=== PATIENT | male | born 1995 | race Caucasian/White ===

== ENCOUNTER 2025-06-18 22:01 | Emergency (ER) | payer MEDICAID, SELFPAY ==
--- NOTE | ~2025-06-18 | XR_ITS ---
CLINICAL HISTORY: post reduction 3 view left hand Comparison: CR - XR HAND LT MIN 3V - 06/18/25 22:34 EDT Findings: No dislocation. No arthritic change. No erosions. No radiopaque foreign body. IMPRESSION: There has been slight improvement in the alignment of 4th metacarpal midshaft fracture. Fiberglass splint is in place. This document has been electronically signed by: Oleksandr Singh MD on 06/19/2025 02:13:43
--- NOTE | ~2025-06-18 | XR_ITS ---
CLINICAL HISTORY: injury, swellin pain 3 view left hand Comparison: None provided Findings: Acute mid 4th metacarpal fracture with volar angulation and slight posterior displacement of distal fragment. No arthritic change. No erosions. No radiopaque foreign body. IMPRESSION: Acute 4th metacarpal midshaft fracture. This document has been electronically signed by: Oleksandr Singh MD on 06/18/2025 23:02:52
[2025-06-18 22:07] VITALS: BP 144/80; PULSE 59; RESP 18; TEMP 36.3; O2SAT 98; BMI 20.3
[2025-06-18 23:20] VITALS: BP 131/74; PULSE 58; RESP 18; TEMP 36.8; O2SAT 98
[2025-06-19 01:45] VITALS: BP 128/78; PULSE 50; RESP 18; O2SAT 96
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
[2025-06-19] MEDS: Lidocaine HCl 1 % MPF 5 ML VIAL INFILTRATI (02:02)
[2025-06-19 02:11] VITALS: BP 128/78; PULSE 50; RESP 18; TEMP 36.7; O2SAT 96
== END 2025-06-19 02:12 | disposition home or self-care (01) ==
PROVIDERS: Emergency Provider Student in an Organized Health Care Education/Training Program
DX: S62.325A Displaced fracture of shaft of fourth metacarpal bone, left hand, initial encounter for closed fracture (principal); V18.0XXA Pedal cycle driver injured in noncollision transport accident in nontraffic accident, initial encounter; Y93.89 Activity, other specified; Y92.9 Unspecified place or not applicable; Y99.9 Unspecified external cause status
CPT/HCPCS: 26605; 73130; 99284; J2003

== ENCOUNTER → 2025-06-18 22:30 | Outpatient (BNV) | payer MEDICAID, SELFPAY | PROVIDERS: Visit Provider Radiology Diagnostic Radiology | DX: S62.324A Displaced fracture of shaft of fourth metacarpal bone, right hand, initial encounter for closed fracture (principal); V18.2XXA Unspecified pedal cyclist injured in noncollision transport accident in nontraffic accident, initial encounter | CPT/HCPCS: 73130 ==

== ENCOUNTER → 2025-06-19 01:31 | Outpatient (BNV) | payer MEDICAID, SELFPAY | PROVIDERS: Emergency Provider Student in an Organized Health Care Education/Training Program; Visit Provider Radiology Diagnostic Radiology | DX: S62.325A Displaced fracture of shaft of fourth metacarpal bone, left hand, initial encounter for closed fracture (principal) | CPT/HCPCS: 73130 ==

== ENCOUNTER 2025-06-21 15:48 | Emergency (ER) | payer MEDICAID, SELFPAY ==
--- NOTE | ~2025-06-21 | XR_ITS ---
CLINICAL HISTORY: repeat trauma, pain 3 view left hand Comparison: CR - XR HAND LT MIN 3V - 06/19/25 01:32 EDT Findings: Status post splinting of the 4th metacarpal dorsally angulated fracture of the mid diaphysis with unchanged alignment. No significant loss of joint space or osteophytes. No erosions. No radiopaque foreign body. IMPRESSION: Status post splinting of the 4th metacarpal dorsally angulated fracture of the mid diaphysis with unchanged alignment. This document has been electronically signed by: Kd Balderrama MD on 06/21/2025 18:19:12
[2025-06-21 15:56] VITALS: BP 157/70; PULSE 90; RESP 20; TEMP 36.6; O2SAT 98; BMI 20.5
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
--- OUTSIDE RECORDS SUMMARY | 2025-06-21 18:52 | XMS_ITS | Clinical Summary ---
Author Organization [employer] Address [address] [facility] [address] [place] [address] Care Team Providers Care Senior Cytogenetic Technologist Name Role Phone Unavailable Primary Care Provider Unavailabl e Social History Tobacco Use Types Packs/Day Years Used Date Smoking Tobacco: Never Assessed Sex and Gender Information Value Date Recorded Sex Assigned at Not on file Legal Sex Male 8:34 PM EDT Gender Identity Not on file Sexual Orientation Not on file Plan of Treatment Health Maintenance Due Date Last Done Comments Depression Screening 1994 Disability Screening 1994 Alcohol/Substance Use Screening 2006 Tobacco Screening 2006 Family Planning (PISQ) 2009 HPV Vaccines (1 - Male 3-dos e series) 2009 DTaP/Tdap/Td Vaccines (1 - Tdap) 2013 Hepatitis B Vaccines (1 of 3 - 19+ 3-dose series) 2013 COVID-19 Vaccine (1 - 2023-2 5 season) 2025 Influenza Vaccine (#1) 2025 Zoster Vaccines (1 of 2) 2044 RSV Patients and Pa tients Aged 60 years or older (1 - 1-dose 75+ series) 2069 HIB Vaccines Aged Out No longer eligi ble based on patient's age to complete this topic Hepatitis A Vaccines Aged Out No long er eligible based on patient's age to complete this topic IPV Vaccines Aged Out No longer eligi ble based on patient's age to complete this topic Meningococcal B Vaccine Aged Out No l onger eligible based on patient's age to complete this topic Meningococcal Vaccine Aged Out No abbey arturo eligible based on patient's age to complete this topic Pneumococcal Vaccine: Pediat rics (0 to 5 Years) and At-Risk Patients (6 to 49) Years Aged Out No longer eligible b ased on patient's age to complete this topic RSV under 20 months Aged Out No longe r eligible based on patient's age to complete this topic Rotavirus Vaccines Aged Out No longer eligible based on patient's age to complete this topic
[2025-06-21 19:03] VITALS: BP 157/70; PULSE 90; RESP 20; TEMP 36.6; O2SAT 98
== END 2025-06-21 19:03 | disposition home or self-care (01) ==
PROVIDERS: Emergency Provider Student in an Organized Health Care Education/Training Program
DX: S62.305A Unspecified fracture of fourth metacarpal bone, left hand, initial encounter for closed fracture (principal); M79.645 Pain in left finger(s); V19.9XXA Pedal cyclist (driver) (passenger) injured in unspecified traffic accident, initial encounter; Y93.55 Activity, bike riding; Y92.9 Unspecified place or not applicable; Y99.8 Other external cause status
CPT/HCPCS: 73130; 99283; 99284

== ENCOUNTER → 2025-06-21 15:57 | Outpatient (BNV) | payer MEDICAID, SELFPAY | PROVIDERS: Emergency Provider Student in an Organized Health Care Education/Training Program; Visit Provider Student in an Organized Health Care Education/Training Program | DX: M79.642 Pain in left hand (principal); S62.325A Displaced fracture of shaft of fourth metacarpal bone, left hand, initial encounter for closed fracture | CPT/HCPCS: 73130 ==

== ENCOUNTER 2025-06-25 09:12 | Outpatient (AMB) | payer MEDICAID, SELFPAY ==
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
[2025-06-25 09:33] VITALS: BMI 20.5
== END 2025-06-25 10:16 | disposition home or self-care (01) ==
LOC: HO.HOS 09:12
PROVIDERS: Visit Provider Orthopaedic Surgery
DX: S62.325A Displaced fracture of shaft of fourth metacarpal bone, left hand, initial encounter for closed fracture (principal)
CPT/HCPCS: 99204

== ENCOUNTER → 2025-06-25 09:14 | Outpatient (BNV) | payer MEDICAID, SELFPAY | PROVIDERS: Visit Provider Radiology Diagnostic Ultrasound | DX: S62.325A Displaced fracture of shaft of fourth metacarpal bone, left hand, initial encounter for closed fracture (principal) | CPT/HCPCS: 73130 ==

== ENCOUNTER 2025-06-25 09:42 | Outpatient (REF) | payer MEDICAID, SELFPAY ==
--- NOTE | ~2025-06-25 | XR_ITS ---
EXAMINATION: XR HAND, LEFT CLINICAL INFORMATION: M79.642 - Pain in left hand COMPARISON: None available. TECHNIQUE: PA, lateral, and oblique views of the left hand. FINDINGS: Redemonstrated fracture of the mid diaphysis of the fourth metacarpal, with mild displacement. Alignment appears similar. No lateral view provided evaluate for the dorsal angulation. No significant callus/new bone formation. No new acute fracture seen. No significant joint space loss or erosions. No radiopaque foreign body. XR/XR hand LT min 3V IMPRESSION: Similar alignment of the fourth metacarpal mid diaphyseal fracture. Electronically signed by: Harjinder Freitas MD 06/25/2025 09:33 AM EDT RP
== END 2025-06-25 09:43 | disposition home or self-care (01) ==
LOC: HO.HOSX 09:42
PROVIDERS: Visit Provider Orthopaedic Surgery
DX: S62.325A Displaced fracture of shaft of fourth metacarpal bone, left hand, initial encounter for closed fracture (principal); V18.0XXA Pedal cycle driver injured in noncollision transport accident in nontraffic accident, initial encounter
CPT/HCPCS: 73130; 99202

== ENCOUNTER 2025-06-26 09:37 | Day surgery (SDC) | payer MEDICAID, SELFPAY ==
--- OUTSIDE RECORDS SUMMARY | 2025-06-25 06:10 | XMS_ITS | Clinical Summary ---
Author Organization [employer] Address [address] [facility] [address] [place] [address] Care Team Providers Care Filter Press Pumper Name Role Phone Unavailable Primary Care Provider [...] Date Last Done Comments Depression Screening 1994 HIV Screening 1994 Disability Screening 1994 Alcohol/Substance Use Screening 2006 Tobacco Screening 2006 Family Planning (PISQ) 2009 HPV Vaccines (1 - Male 3-dos e series) 2009 Hepatitis C Screening 2012 DTaP/Tdap/Td Vaccines (1 - Tdap) 2013 Hepatitis [...]
--- NOTE | 2025-06-25 10:28 | P.CONAN_ITS ---
Documented by User: Monique Eng NP 06/25/25 10:29 HPI - Anesthesia Eval Consult details Narrative: 29 yr old male for left 4th CRPP vs ORIF Metacarpal PMFSH Active Problems Active Problems: All Active Problems (Updated 06/25/25 @ 09:42 by Sukh Macias) Fracture of shaft of fourth metacarpal bone of left hand (Acute) Social History Social History Alcohol intake: never Patient Tobacco Use Status: Current everyday Tobacco user Advance Directives: No Advance Directives Information Provided: Yes Current occupational status: unemployed Current occupation: right hand dominant Meds Allergies Allergy/AdvReac Type Severity Reaction Status Date / Time No Known Allergies Allergy Verified 06/26/25 10:21 Home Medications ?Medication ?Instructions ?Recorded ?Confirmed ?Last Taken ?Type No Known Home Meds 06/25/25 Unknown Hi story Documented by User: Shannan Herbert MD 06/26/25 10:24 PMFSH Family History Family history of problems with anesthesia: No Surgical History History of Problems with Anesthesia: No Social History Social History Alcohol intake: never Patient Tobacco Use Status: Current everyday Tobacco user Advance Directives: No Advance Directives Information Provided: Yes Current occupational status: unemployed Current occupation: right hand dominant Meds Allergies Allergy/AdvReac Type Severity Reaction Status Date / Time No Known Allergies Allergy Verified 06/26/25 10:21 Home Medications ?Medication ?Instructions ?Recorded ?Confirmed ?Last Taken ?Type No Known Home Meds 06/25/25 Unknown Hi story Exam Airway Mallampati Class: II TM Dist: >3cm Neck ROM: Full Heart: rrr Lungs: cta Assessment and Plan Assessment Anesthesia Assessment: Anesthesia Plan Discussed and Chart Reviewed Final Anesthetic Review Family History of Problems with Anesthesia: No History of Problems with Anesthesia: No NPO: Yes ASA Class: II (daily smoker ) Final Preanesthetic Review: No Changes in Pt Med Stat, Meds/Allgs Chart Reviewed, Consent Obtained/Reviewed and Anes Risks/Benef Reviewed Patient Risk: Intermediate Procedure Risk: Low Anesthetic Plan Anesthetic Plan: GA Disposition: Standard PACU
[2025-06-26] VITALS (7 sets, daily range): BP systolic 107–160; BP diastolic 56–82; PULSE 62–81; RESP 12–14; TEMP 36.2–36.9; O2SAT 97–100; BMI 20.4
--- NOTE | ~2025-06-26 | FL_ITS ---
EXAMINATION: XR FLUOROSCOPY WITH IMAGES CLINICAL INFORMATION: Fourth CRPP versus ORIF metacarpal COMPARISON: X-ray 06/25/2025 TECHNIQUE: Fluoroscopy provided to: Dr. Sanchez Fluoroscopy time: 52 SECS DAP: 0.11 mGycm2 Images: 5 FINDINGS: Multiple intraoperative images for surgical fixation of a fourth metacarpal fracture. FL/FL guidance in OR IMPRESSION: Fluoroscopy during procedure.. See procedure report for additional information.. Electronically signed by: Harjinder Freitas MD 06/26/2025 02:19 PM EDT
--- NOTE | 2025-06-26 07:56 | P.OP_ITS ---
Operative Note Operative Note Date of Service: 06/26/25 Narrative: Operative Note Narrative: Preop diagnosis: 1. Left 4th Metacarpal shaft fracture Postop diagnosis: Same Procedure: 1. Left 4th Metacarpal fracture closed reduction percutaneous pinning 2. Ulnar nerve block Surgeon: Nida Sanchze MD Casino Shift Manager: None Anesthesia: General Anesthesia Findings: Metacarpal fracture Implants: 0.054 K-wires times 1 Tourniquet time: None EBL: Minimal Specimen: None Drains: None Complications: None Disposition: Brought to the recovery room in stable condition Plan: Follow-up in 10-14 days for a wound check, postop radiographs and for placement in a short-arm finger spica cast, sherrie taping the middle in the ring finger together Anticipate K-wire removal in 4 weeks based on interval bony healing Educate the patient that full fracture healing anticipated in approximately 8-12 weeks. Indications: The patient is 29 years old with a left 4th metacarpal shaft fracture . The risks and benefits of operative treatment, including but not limited to risk of damage to blood vessels, nerves, tendons, infection, recurrence, delayed or nonunion of fracture, persistent pain or numbness, incomplete resolution of preoperative symptoms, or need for further surgery were discussed with the patient and they wished to proceed with surgery. Procedure: Once consent was obtained patient was brought back to the operating suite and placed in the operating table in a supine position. . Perioperative antibiotics and general anesthesia was administered by the anesthesia team. A tourniquet was applied to the proximal aspect of the left upper extremity and the limb was prepped and draped in a standard surgical fashion. Tourniquet was not inflated during the case. The FluoroScan was used during the case to assist with our fracture reduction and placement of all implants. A closed reduction was performed on the patient's left 4th metacarpal shaft fracture. I placed a single 0.054 K-wire retrograde through the head of the 4th metacarpal extending proximally across the fracture site to the base of the metacarpal. Fracture alignment was assessed for both angular and rotational malalignment. Once satisfied with our fracture reduction and implant placement, the K-wires were bent and cut short and pin caps applied. Final fluoroscopic images were then obtained. The wounds were copiously irrigated with normal saline. I infiltrated about the fracture site with some 1% lidocaine with epinephrine for postop pain control. A Sterile dressing and dorsal blocking splint was applied. The patient appears to have tolerated the procedure well and with no complications. All digits were well vascularized at the conclusion of the case.
[2025-06-26] MEDS: Lactated Ringers 1,000 ML 100 ML IVCONT (10:38)
--- NOTE | 2025-06-26 12:13 | MHC.SHP ---
Pre-Procedural Eval Section A - 24 Hr Update-Section A only Date of Service: 06/26/25 The patient is an INPATIENT: No Changes since office visit: No Cold of Flu in the past 2 weeks, No New Medical Problems, No Changes in Medication and No Patient answered all questions The patient has been examined within 24 hours of the surgical procedure. The History & Physical has been completed within 30 days and I have reviewed it.: Yes Section B - Complete if H&P > 30 days Chief Complaint: Displaced fracture of shaft of fourth metacarpal Allergies: Allergies Allergy/AdvReac Type Severity Reaction Status Date / Time No Known Allergies Allergy Verified 06/26/25 10:21 Plan I have reviewed the history and physical and performed a pertinent physical examination on my patient. No changes have occurred unless specified. Time Spent With Patient Time: Total time managing care of this patient today ____ minutes.
== END 2025-06-26 15:26 | disposition home or self-care (01) ==
PROVIDERS: Visit Provider Orthopaedic Surgery
PROC: (CPT 26608; principal; 2025-06-26 11:20)
DX: S62.325A Displaced fracture of shaft of fourth metacarpal bone, left hand, initial encounter for closed fracture (principal); M79.642 Pain in left hand; R20.0 Anesthesia of skin; V18.0XXA Pedal cycle driver injured in noncollision transport accident in nontraffic accident, initial encounter; Y93.55 Activity, bike riding; Y92.9 Unspecified place or not applicable; Y99.9 Unspecified external cause status; F17.210 Nicotine dependence, cigarettes, uncomplicated; Z56.0 Unemployment, unspecified
CPT/HCPCS: 26608; J0131; J0690; J1100; J1885; J2003; J2004; J2250; J2405; J2704; J3010

== ENCOUNTER → 2025-06-26 09:37 | Outpatient (BNV) | payer MEDICAID, SELFPAY | PROVIDERS: Visit Provider Orthopaedic Surgery | DX: S62.305A Unspecified fracture of fourth metacarpal bone, left hand, initial encounter for closed fracture (principal) | CPT/HCPCS: 26608 ==

== ENCOUNTER 2025-07-09 10:35 | Outpatient (REF) | payer MEDICAID, SELFPAY ==
--- NOTE | ~2025-07-09 | XR_ITS ---
EXAMINATION: XR HAND 3 OR MORE VIEWS LEFT HISTORY: M79.642 - Pain in left hand COMPARISON: Comparison is made with the prior examination dated 06/25/2025. FINDINGS: Three views of the left hand are submitted. Osseous mineralization is normal. The patient is status post internal fixation of the previously noted fracture of the midshaft of the 4th metacarpal with a single K wire. Alignment is near-anatomic. The fracture line remains visible. The joint spaces are preserved. The soft tissues are unremarkable. XR/XR hand LT min 3V IMPRESSION: Internal fixation of the previously noted fracture of the midshaft of the 4th metacarpal. Electronically signed by: Reggie Escudero MD 07/09/2025 03:00 PM EDT
--- OUTSIDE RECORDS SUMMARY | 2025-07-09 13:25 | XMS_ITS | Clinical Summary ---
Author Organization [facility] Address [address] [place] [address] Care Team Providers Care Hydraulics Engineer Name Role Phone Unavailable Primary Care Provider [...]
== END 2025-07-09 10:36 | disposition home or self-care (01) ==
LOC: HO.HOSX 10:35
DX: S62.325D Displaced fracture of shaft of fourth metacarpal bone, left hand, subsequent encounter for fracture with routine healing (principal); X58.XXXD Exposure to other specified factors, subsequent encounter
CPT/HCPCS: 73130

== ENCOUNTER 2025-07-09 14:11 | Outpatient (AMB) | payer MEDICAID, SELFPAY ==
--- NOTE | 2025-07-09 14:27 | A.OFFVIS_ITS ---
Vital Signs 07/09/25 14:28 Height 5 ft 7 in Weight 130 lb BMI 20.4 Intake Visit Reasons: PO-Lt 4th MC CRPP 06/26/25 AR Intake Note: Brandan is a 29 year old right hand dominant male who presents today for a Post- operative visit status post Left 4th Metacarpal Fracture CRPP, DOS: 06/26/[address] Sanchez. Patient reports there is minimal pain. He feels like his hand swells up during the night. He is taking Ibuprofen with relief. He denies numbness or tingling. Allergies No Known Allergies Allergy (Verified 07/09/25 14:43) HPI HPI PO-Lt 4th MC CRPP 06/26/25 AR: Details: Brandan is a 29 year old right hand dominant male who presents today for a Post- operative visit status post Left 4th Metacarpal Fracture CRPP, DOS: 06/26/[address] Sanchez. Patient reports there is minimal pain. He feels like his hand swells up during the night. He is taking Ibuprofen with relief. He denies numbness or tingling. [facility] Surgical History (Updated 07/09/25 @ 14:45 by BETTY Han) History of wisdom tooth extraction Social History Are you a primary child care provider to a significant other at home: No Do you presently have visiting nurse or other home services: No Alcohol intake: never Patient Tobacco Use Status: Current everyday Tobacco user Tobacco use type: Cigarette Cigarettes Per Day: 9 Current occupational status: unemployed Current occupation: right hand dominant Review of Systems Const All systems reviewed & are unremarkable except as noted in HPI and below Physical Exam Vital Signs: BMI result Body Mass Index 20.4 Extrem Other: Patient is alert, oriented, and in no acute distress. Neuro: Normal sensation of the tips of all digits of the left hand at this time Vascular: Cap refill brisk Pain: Some tenderness to palpation about fracture site and left 4th metacarpal ROM: Range of motion of all other digits of the left hand full and intact Skin: Pin sites with no signs of infection, clean, dry, intact No lacerations or abrasions. General: No ecchymosis, erythema, or evidence of infection. Psych: Appears grossly normal Affect normal Attitude cooperative Office Procedures Casting/Splints 24369-Ftoc/Wrist Cast Application Procedure code (CPT) selection complete Results Reviewed Results Reviewed: X-rays obtained in the office today and independently reviewed by me, Geraldo Norris PA-C, demonstrate status post left 4th metacarpal CRPP with all orthopedic hardware in place, satisfactory clinical alignment, and satisfactory fracture alignment. Assessment & Plan Assessment & Plan (1) Fracture of shaft of fourth metacarpal bone of left hand: Code(s): S62.325A - Displaced fracture of shaft of fourth metacarpal bone, left hand, initial encounter for closed fracture Category: Medical Plan 1. Status post left 4th metacarpal CRPP DOS 06/26/2025 Patient appears to be recovering well postoperatively Patient is educated about the typical recovery course Patient is placed into a ulnar gutter cast at this time Patient is educated on proper cast care and precautions Patient is educated on the potential signs of infection developing under cast, should call our office if he experiences any of these issues 2 lb weight limit in the left hand Patient understands this and is amenable to this plan Follow-up in 2 weeks with repeat x-rays for reassessment, sooner with any acute concerns Orders: Orders XR hand LT min 3V 07/09/25 M79.642 - Pain in left hand Coding Level of Care Code Global (00221) Diagnoses Fracture of shaft of fourth metacarpal bone of left hand S62.325A CPT Codes Casting - CPT: 97245-Odjp/Wrist Cast Application ([id number])
[2025-07-09 14:28] VITALS: BMI 20.4
== END 2025-07-09 15:44 | disposition home or self-care (01) ==
LOC: HO.HOS 14:12
DX: S62.325A Displaced fracture of shaft of fourth metacarpal bone, left hand, initial encounter for closed fracture (principal)
CPT/HCPCS: 29085; 99024

== ENCOUNTER → 2025-07-09 14:32 | Outpatient (BNV) | payer MEDICAID, SELFPAY | PROVIDERS: Visit Provider Radiology Diagnostic Radiology | DX: M79.642 Pain in left hand (principal) | CPT/HCPCS: 73130 ==

== ENCOUNTER 2025-07-28 08:06 | Outpatient (REF) | payer MEDICAID, SELFPAY ==
--- NOTE | ~2025-07-28 | XR_ITS ---
EXAMINATION: XR HAND, LEFT CLINICAL INFORMATION: M79.642 - Pain in left hand COMPARISON: July 09, 2025 TECHNIQUE: PA, lateral, and oblique views of the left hand. FINDINGS: There is a K wire through the fourth metatarsal fracture. No callus formation. Persistent 2 mm capitate the fragments. XR/XR hand LT min 3V IMPRESSION: Nonunion fracture, fourth metacarpal. Status post K wire placement. Electronically signed by: Vignesh Turner MD 07/28/2025 02:50 PM EST
--- OUTSIDE RECORDS SUMMARY | 2025-07-28 08:23 | XMS_ITS | Clinical Summary ---
Author Organization [facility] Address [address] [place] [address] Care Team Providers Care Animal Rehabilitator Name Role Phone Unavailable Primary Care Provider [...]
== END 2025-07-28 08:07 | disposition home or self-care (01) ==
LOC: HO.HOSX 08:06
DX: S62.352D Nondisplaced fracture of shaft of third metacarpal bone, right hand, subsequent encounter for fracture with routine healing (principal)
CPT/HCPCS: 29085; 73130; 99212

== ENCOUNTER 2025-07-28 13:12 | Outpatient (AMB) | payer MEDICAID, SELFPAY ==
[2025-07-28 13:27] VITALS: BMI 20.4
--- NOTE | 2025-07-28 13:27 | A.OFFVIS_ITS ---
Vital Signs 07/28/25 13:27 Height 5 ft 7 in Weight 130 lb BMI 20.4 Intake Visit Reasons: PO-Lt 4th MC CRPP 06/26/25 AR w/ xray Intake Note: Brandan is a 29 year old right hand dominant male who presents today for a Post- operative visit status post Left 4th Metacarpal CRPP performed on 06/26/[address] Sanchez. At his last visit, he was placed into an ulnar gutter cast and advised to remain at a 2 lb weight limit. Patient complains of weakness of his finger tips. He denies any pain but is concerned he is not able to fully open is hand or make a closed fist. Allergies No Known Allergies Allergy (Verified 07/28/25 13:27) HPI HPI PO-Lt 4th MC CRPP 06/26/25 AR w/ xray: Details: Brandan is a 29 year old right hand dominant male who presents today for a Post- operative visit status post Left 4th Metacarpal CRPP performed on 06/26/[address] Sanchez. At his last visit, he was placed into an ulnar gutter cast and advised to remain at a 2 lb weight limit. Patient complains of weakness of his finger tips, particularly of the middle, ring, small fingers. He denies any pain but is concerned he is not able to fully open is hand or make a closed fist. Denies any numbness or tingling in the left hand. No other acute complaints or concerns at this time. [facility] Surgical History (Updated 07/09/25 @ 14:45 by BETTY Han) History of wisdom tooth extraction Social History Are you a primary home day care provider to a significant other at home: No Do you presently have visiting nurse or other home services: No Alcohol intake: never Patient Tobacco Use Status: Current everyday Tobacco user Tobacco use type: Cigarette Cigarettes Per Day: 9 Current occupational status: unemployed Current occupation: right hand dominant Review of Systems Const All systems reviewed & are unremarkable except as noted in HPI and below Physical Exam Vital Signs: BMI result Body Mass Index 20.4 Extrem Other: Patient is alert, oriented, and in no acute distress. Neuro: Normal sensation of the tips of all digits of the left hand at this time Vascular: Cap refill brisk Pain: Some tenderness to palpation about fracture site and left 4th metacarpal Some discomfort with range of motion of the left middle, ring, small fingers ROM: Patient is able to flex and extend the left thumb and index finger fully Patient does have limited flexion and extension of the middle and small fingers of the left hand, extension more limited in flexion Skin: Pin sites with no signs of infection, clean, dry, intact No lacerations or abrasions. General: No ecchymosis, erythema, or evidence of infection. Psych: Appears grossly normal Affect normal Attitude cooperative Office Procedures Casting/Splints 35583-Eryq/Wrist Cast Application Procedure code (CPT) selection complete Results Reviewed Results Reviewed: X-rays obtained in the office today and independently reviewed by me, Geraldo Norris PA-C, demonstrate status post left 4th metacarpal CRPP with all orthopedic hardware in place, satisfactory clinical alignment, and satisfactory fracture alignment, however there is minimal if any evidence of bony healing at this time. Assessment & Plan Assessment & Plan (1) Fracture of shaft of fourth metacarpal bone of left hand: Code(s): S62.325A - Displaced fracture of shaft of fourth metacarpal bone, left hand, initial encounter for closed fracture Category: Medical Plan 1. Status post left 4th metacarpal CRPP DOS 06/26/2025 Patient appears to be recovering well postoperatively Patient is educated about the typical recovery course Patient is placed into a ulnar gutter cast at this time due to minimal evidence of healing, and pin remains in place also due to this. Patient is educated on proper cast care and precautions Patient is educated on the potential signs of infection developing under cast, should call our office if he experiences any of these issues 2 lb weight limit in the left hand Patient understands this and is amenable to this plan Follow-up in 7-10 days with me with Dr. Sanchez in the office with repeat x- rays for reassessment, anticipate pin removal and cast removal at that time, with any acute concerns Orders: Orders XR hand LT min 3V 07/28/25 M79.642 - Pain in left hand Coding Level of Care Code Global (38723) Diagnoses Fracture of shaft of fourth metacarpal bone of left hand S62.325A CPT Codes Casting - CPT: 21390-Vtdg/Wrist Cast Application ([id number])
== END 2025-07-28 15:08 | disposition home or self-care (01) ==
LOC: HO.HOS 13:12
DX: S62.325A Displaced fracture of shaft of fourth metacarpal bone, left hand, initial encounter for closed fracture (principal)
CPT/HCPCS: 29085; 99024

== ENCOUNTER → 2025-07-28 13:13 | Outpatient (BNV) | payer MEDICAID, SELFPAY | PROVIDERS: Visit Provider Radiology Diagnostic Radiology | DX: S62.30 Unspecified fracture of other metacarpal bone (principal) | CPT/HCPCS: 73130 ==

== ENCOUNTER 2025-08-05 08:15 | Outpatient (REF) | payer MEDICAID, SELFPAY ==
--- NOTE | ~2025-08-05 | XR_ITS ---
EXAMINATION: XR HAND, LEFT CLINICAL INFORMATION: M79.642 - Pain in left hand COMPARISON: 05/28/2025 TECHNIQUE: PA, lateral, and oblique views of the left hand. FINDINGS: Again seen is a K wire traversing an oblique fracture through the middle third diaphysis of the fourth metacarpal.. There is increasing periosteal new bone formation. No other changes are evident. XR/XR hand LT min 3V IMPRESSION: Healing fourth metacarpal fracture post K wire placement. Electronically signed by: Kareem José MD 08/05/2025 10:27 AM JOI
--- OUTSIDE RECORDS SUMMARY | 2025-08-06 15:52 | XMS_ITS | Clinical Summary ---
Author Organization [facility] Address [address] [facility] [address] [place] [address] Care Team Providers Care Chip Bin Conveyor Tender Name Role Phone Unavailable Primary Care Provider [...]
== END 2025-08-05 08:16 | disposition home or self-care (01) ==
LOC: HO.HOSX 08:15
DX: S62.325D Displaced fracture of shaft of fourth metacarpal bone, left hand, subsequent encounter for fracture with routine healing (principal); X58.XXXD Exposure to other specified factors, subsequent encounter
CPT/HCPCS: 73130; 99212

== ENCOUNTER 2025-08-05 08:53 | Outpatient (AMB) | payer MEDICAID, SELFPAY ==
[2025-08-05 09:00] VITALS: BMI 20.4
--- NOTE | 2025-08-05 09:00 | A.OFFVIS_ITS ---
Vital Signs 08/05/25 09:00 Height 5 ft 7 in Weight 130 lb BMI 20.4 Intake Visit Reasons: PO-Lt 4th MC CRPP 06/26/25 AR w/ xray Intake Note: Brandan is a 29 year old right hand dominant male who presents today for a Post- operative visit status post Left 4th Metacarpal CRPP performed on 06/26/[address] Sanchez. At his last visit, he was placed in an ulnar gutter cast and pl aced in 2 lb weight limit. Anticipate pin and cast removal. Today, patient reports he has very minimal pain. He is mainly concerned about his hand stiffness. Allergies No Known Allergies Allergy (Verified 08/05/25 09:13) HPI HPI PO-Lt 4th MC CRPP 06/26/25 AR w/ xray: Details: Brandan is a 29 year old right hand dominant male who presents today for a Post- operative visit status post Left 4th Metacarpal CRPP performed on 06/26/[address] Sanchez. At his last visit, he was placed in an ulnar gutter cast and placed in 2 lb weight limit. Anticipate pin and cast removal. Today, patient reports he has very minimal pain. No tenderness to palpation, patient states that his pain is all with motion of the left hand, and he feels this is due to being in a cast for so long. He is mainly concerned about his hand stiffness. [facility] Surgical History (Updated 07/09/25 @ 14:45 by BETTY Han) History of wisdom tooth extraction Social History Are you a primary patient centered care specialist to a significant other at home: No Do you presently have visiting nurse or other home services: No Alcohol intake: never Patient Tobacco Use Status: Current everyday Tobacco user Tobacco use type: Cigarette Cigarettes Per Day: 9 Current occupational status: unemployed Current occupation: right hand dominant Review of Systems Const All systems reviewed & are unremarkable except as noted in HPI and below Physical Exam Vital Signs: BMI result Body Mass Index 20.4 Extrem Other: Patient is alert, oriented, and in no acute distress. Neuro: Normal sensation of the tips of all digits of the left hand at this time Vascular: Cap refill brisk Pain: No tenderness to palpation about fracture site and left 4th metacarpal Some discomfort with range of motion of the left middle, ring, small fingers ROM: Patient is able to flex and extend the left thumb and index finger fully Patient does have limited flexion and extension of the middle and small fingers of the left hand, extension more limited in flexion Skin: Pin sites with no signs of infection, clean, dry, intact No lacerations or abrasions. General: No ecchymosis, erythema, or evidence of infection. Psych: Appears grossly normal Affect normal Attitude cooperative Results Reviewed Results Reviewed: X-rays obtained in the office today and independently reviewed by me, Geraldo Norris PA-C, demonstrate status post left 4th metacarpal CRPP with all orthope dic hardware in place, satisfactory clinical alignment, and satisfactory fracture alignment with evidence of interval bony healing at this time. Assessment & Plan Assessment & Plan (1) Fracture of shaft of fourth metacarpal bone of left hand: Code(s): S62.325A - Displaced fracture of shaft of fourth metacarpal bone, left hand, initial encounter for closed fracture Category: Medical Plan 1. Status post left 4th metacarpal CRPP DOS 06/26/2025 Patient appears to be recovering well postoperatively Patient is educated about the typical recovery course Pin pulled today without issue Patient is placed into a Velcro wrist splint and is advised that he should sherrie tape the middle and ring fingers together Patient is educated that he should avoid washing the pin site with soap and water in the sink of the shower until it appears well closed, no submerging for 1 more week 2 lb weight limit in the left hand Patient understands this and is amenable to this plan Follow-up in 4 weeks with repeat x-rays for reassessment, sooner with any acute concerns Orders: Orders XR hand LT min 3V Today M79.642 - Pain in left hand Coding Level of Care Code Global (89951) Diagnoses Fracture of shaft of fourth metacarpal bone of left hand S62.325A
--- OUTSIDE RECORDS SUMMARY | 2025-08-05 18:23 | XMS_ITS | Clinical Summary ---
Author Organization [facility] Address [address] [place] [address] Care Team Providers Care Subsystems Engineer Name Role Phone Unavailable Primary Care [...] 3-dose series) 2013 COVID-19 Vaccine (1 - 2024-2 6 season) 2025 Influenza Vaccine (#1) 2025 Zoster [...]
== END 2025-08-05 10:10 | disposition home or self-care (01) ==
LOC: HO.HOS 08:53
DX: S62.325A Displaced fracture of shaft of fourth metacarpal bone, left hand, initial encounter for closed fracture (principal)
CPT/HCPCS: 99024

== ENCOUNTER → 2025-08-05 08:55 | Outpatient (BNV) | payer MEDICAID, SELFPAY | PROVIDERS: Visit Provider Radiology Diagnostic Radiology | DX: M79.642 Pain in left hand (principal) | CPT/HCPCS: 73130 ==

== ENCOUNTER 2025-09-05 08:39 | Outpatient (REF) | payer MEDICAID, SELFPAY ==
--- NOTE | ~2025-09-05 | XR_ITS ---
EXAMINATION: XR HAND, LEFT CLINICAL INFORMATION: M79.642 - Pain in left hand follow-up fracture after hardware removal COMPARISON: 08/05/2025 TECHNIQUE: PA, lateral, and oblique views of the left hand. FINDINGS: K wire previously traversing the fourth metacarpal carpal has been removed. There is ulnar offset by a full cortical width. On the prior, this appeared more aligned. There is increasing density across the fracture with new cancellous bone and increasing density of periosteal new bone with cortical bridging. There are no other changes. XR/XR hand LT min 3V IMPRESSION: Interval K wire removal from the fourth metacarpal. Ulnar offset distal to the fracture by one cortical width since the prior. Otherwise, there is evidence of healing. Electronically signed by: Kareem José MD 09/05/2025 11:43 AM JOI
--- OUTSIDE RECORDS SUMMARY | 2025-09-08 09:01 | XMS_ITS | Clinical Summary ---
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
== END 2025-09-05 08:40 | disposition home or self-care (01) ==
LOC: HO.HOSX 08:39
DX: S62.325D Displaced fracture of shaft of fourth metacarpal bone, left hand, subsequent encounter for fracture with routine healing (principal); X58.XXXD Exposure to other specified factors, subsequent encounter
CPT/HCPCS: 73130; 99212

== ENCOUNTER 2025-09-05 11:32 | Outpatient (AMB) | payer MEDICAID, SELFPAY ==
--- NOTE | 2025-09-05 11:46 | MHC.OFFVIS ---
Vital Signs 09/05/25 11:50 Height 5 ft 7 in Weight 130 lb BMI 20.4 Intake Visit Reasons: PO-Lt 4th MC CRPP 06/26/25 AR - W/ XR Intake Note: Brandan is a 29 year old right hand dominant male who presents today for a Post-operative visit status post Left 4th Metacarpal CRPP on 06/26/25. At his last visit his pins were removed and he was placed in a velcro wrist brace with sherrie tape on the middle and ring fingers. He was given a 2lb weight limit. Patient reports that he is doing well with no pain. He still is struggling to make a full fist but ROM has improved to prior. He does notice involontary movement of the Ring finger that coours mostly while trying to put the hand in full extension. Allergies No Known Allergies Allergy (Verified 09/05/25 11:49) HPI HPI PO-Lt 4th MC CRPP 06/26/25 AR - W/ XR: Details: Brandan is a 29 year old right hand dominant male who presents today for a Post-operative visit status post Left 4th Metacarpal CRPP on 06/26/25. At his last visit his pins were removed and he was placed in a velcro wrist brace with sherrie tape on the middle and ring fingers. He was given a 2lb weight limit. Patient reports that he is doing well with no pain. He still is struggling to make a full fist but ROM has improved to prior, knee reports that he can make a closed fist, but it has trouble holding it. He does notice involontary movement of the Ring finger that coours mostly while trying to put the hand in full extension. COUNT INCLUDES THE [facility] Surgical History (Updated 07/09/25 @ 14:45 by BETTY Han) History of wisdom tooth extraction Social History Are you a primary medicare interviewer to a significant other at home: No Do you presently have visiting nurse or other home services: No Alcohol intake: never Patient Tobacco Use Status: Current everyday Tobacco user Tobacco use type: Cigarette Cigarettes Per Day: 9 Current occupational status: unemployed Current occupation: right hand dominant Review of Systems Const All systems reviewed & are unremarkable except as noted in HPI and below Physical Exam Vital Signs: BMI result Body Mass Index 20.4 Extrem Other: Patient is alert, oriented, and in no acute distress. Neuro: Normal sensation of the tips of all digits of the left hand at this time Vascular: Cap refill brisk Pain: No tenderness to palpation about fracture site and left 4th metacarpal Very minimal discomfort with range of motion of the left middle, ring, small fingers, vastly improved from previous evaluation ROM: With encouragement, patient is able to make a full closed fist and extend all digits of the left hand fully However, there is noted to be some slight stiffness of the left ring and small fingers Skin: Pin sites with no signs of infection, clean, dry, intact No lacerations or abrasions. General: No ecchymosis, erythema, or evidence of infection. Psych: Appears grossly normal Affect normal Attitude cooperative Results Reviewed Results Reviewed: X-rays obtained in the office today and independently reviewed by me, Geraldo Norris PA-C, demonstrate status post left 4th metacarpal CRPP with all orthopedic hardware in place, satisfactory clinical alignment, and satisfactory fracture alignment with evidence of interval bony healing at this time. Assessment & Plan Assessment & Plan (1) Fracture of shaft of fourth metacarpal bone of left hand: Code(s): S62.325A - Displaced fracture of shaft of fourth metacarpal bone, left hand, initial encounter for closed fracture Category: Medical Plan 1. Status post left 4th metacarpal CRPP DOS 06/26/2025 Patient appears to be recovering well postoperatively Patient is educated about the typical recovery course Pin pulled today without issue Velcro wrist splint sherrie tape should be worn with daytime activities at this time 2 lb weight limit in the left hand, may increase to a 5 lb weight limit over the next 4 weeks OT ordered at last visit, patient is provided with OT contact information to of his 1st appointment Patient understands this and is amenable to this plan Follow-up in 4 weeks for [id number] check, sooner with any acute concerns Orders: Orders XR hand LT min 3V Today M79.642 - Pain in left hand Coding Level of Care Code Global (82521) Diagnoses Fracture of shaft of fourth metacarpal bone of left hand S62.325A
[2025-09-05 11:50] VITALS: BMI 20.4
--- OUTSIDE RECORDS SUMMARY | 2025-09-05 13:41 | XMS_ITS | Clinical Summary ---
Author Organization [employer] Address [address] [facility] [address] [place] [address] Care Team Providers Care Security Supervisor Name Role Phone Unavailable Primary Care Provider [...]
== END 2025-09-05 11:58 | disposition home or self-care (01) ==
LOC: HO.HOS 11:33
DX: S62.325A Displaced fracture of shaft of fourth metacarpal bone, left hand, initial encounter for closed fracture (principal)
CPT/HCPCS: 99024

== ENCOUNTER → 2025-09-05 11:33 | Outpatient (BNV) | payer MEDICAID, SELFPAY | PROVIDERS: Visit Provider Radiology Diagnostic Radiology | DX: M79.642 Pain in left hand (principal) | CPT/HCPCS: 73130 ==